=== PATIENT | male | born 1970 | race African-American/Black ===

== ENCOUNTER 2023-05-11 15:49 | Emergency (ER) | payer OTHER ==
[~2023-05-11] VITALS: Ht 172.7 cm; Wt 67.1 kg
[2023-05-11] MEDS ORDERED: PERCOCET 10-321 EACH (16:09)
[2023-05-12] MEDS ORDERED: OXYCONTIN30 M1 PO (03:17)
== END 2023-05-11 17:46 | disposition home or self-care (01) ==
LOC: ER 15:49
DX: M54.9 Dorsalgia, unspecified (principal)

== ENCOUNTER 2023-05-12 00:46 | Emergency (ER) | payer OTHER ==
[~2023-05-12] VITALS: Ht 172.7 cm; Wt 67.1 kg
[~2023-05-12 00:46] MED LIST: PERCOCET 10-321 EACH
[2023-05-12] MEDS ORDERED: OXYCONTIN30 M1 PO (03:17)
== END 2023-05-12 03:22 ==
LOC: ER 00:46
DX: M54.59 Other low back pain (principal); F11.20 Opioid dependence, uncomplicated